=== PATIENT | female | born 1975 | race Hispanic/Latino ===

== ENCOUNTER → 2025-01-17 | Outpatient (CLI) | payer BC ==
--- NOTE | 2025-01-17 20:08 | HMCIMG ---
EXAM: CT Maxillofacial Without Intravenous Contrast. CLINICAL HISTORY: 49 year old female with a deviated nasal septum. TECHNIQUE: Axial computed tomography images of the face without intravenous contrast. Sagittal and coronal reformations performed. Dose reduction technique was used including one or more of the following: automated exposure control, adjustment of mA and kV according to patient size, and/or iterative reconstruction. CONTRAST: NONE; COMPARISON: None provided. FINDINGS: BONES: No acute fracture or focal osseous lesion. The mandible is intact. Moderate degenerative changes of the cervical spine are noted. Partial fusion of the C4-C5 disc space is seen. SOFT TISSUES: Mucoperiosteal thickening in the bilateral maxillary air sinuses suggesting sinusitis. SINUSES: The sinuses are not clear, with mucoperiosteal thickening in the bilateral maxillary air sinuses suggesting sinusitis. ORBITS: The orbits are normal. No retrobulbar hematoma or mass. Nasal septal deviation to the left is seen measuring at least 6.2 mm. IMPRESSION: 1. Mucoperiosteal thickening in the bilateral maxillary air sinuses, consistent with sinusitis. 2. Nasal septal deviation to the left, measuring at least 6.2 mm. /[place]
== END | disposition home or self-care (01) ==
LOC: RAH 13:32
PROVIDERS: ATTEND Otolaryngology
DX: J34.2 Deviated nasal septum (principal); J34.3 Hypertrophy of nasal turbinates; J34.89 Other specified disorders of nose and nasal sinuses; M47.812 Spondylosis without myelopathy or radiculopathy, cervical region; M43.22 Fusion of spine, cervical region
CPT/HCPCS: 70486